=== PATIENT | female | born 1955 | race Caucasian/White ===

== ENCOUNTER 2025-01-22 09:10 | Day surgery (SDC) | payer MEDICARE, BC ==
[~2025-01-22] VITALS: Ht 167.6 cm; Wt 80.5 kg
[~2025-01-22 09:10] MED LIST: ALBUTEROL; ASPI-128 PO; LOSA25TA41 PO; ROSU10TA72 PO; SENN-360 PO; TIOT4MIS3 INH; VENL37.589 PO
[2025-01-22 09:47] VITALS: BP 143/81; PULSE 78; RESP 14
[2025-01-22] MEDS ORDERED: simethicone 40mg/0.6ml oral drops 30ml ONE (10:24)
[2025-01-22] MEDS ORDERED: midazolam 1 mg/ML 2ml injection ONE (10:34)
[2025-01-22] MEDS ORDERED: fentaNYL/PF 50MCG/1 ML 2ML syringe ONE (10:34)
[2025-01-22] MEDS ORDERED: propofol inj 20 ML IV ONE (10:53)
[2025-01-22 11:15] VITALS: BP 113/68; PULSE 66; RESP 17; O2SAT 98
[2025-01-22 11:20] VITALS: BP 112/69; PULSE 67; RESP 17; O2SAT 100
[2025-01-22 11:30] VITALS: BP 134/77; PULSE 63; RESP 19; O2SAT 100
[2025-01-22 11:40] VITALS: BP 134/77; PULSE 63; RESP 20; O2SAT 100
[2025-01-22 11:50] VITALS: BP 142/82; PULSE 18; RESP 65; O2SAT 100
--- NOTE | 2025-01-26 12:40 | PATHOLOGY REPORT ---
[facility] [address] [place] [address] SURGICAL PATHOLOGY REPORT CaseNumber: [id number] Surgeon:Lilibeth Hernandez M.D. CLINICAL INFORMATION CLINICAL INFORMATION: Periumbilical abdominal pain, hematochezia, dyspepsia. DIAGNOSIS DIAGNOSIS: COLON, SIGMOID; BIOPSY - HYPERPLASTIC POLYP. MICROSCOPIC DESCRIPTION MICROSCOPIC DESCRIPTION: Performed. GROSS DESCRIPTION GROSS DESCRIPTION: Received in a container of formalin labeled with the patient's name, number, and " sigmoid polyp" is a 0.5 x 0.2 x 0.2 cm irregularly shaped piece of mckay tissue. The specimen is entire ly submitted as A1. The time at which the specimen was removed was 1105. The time at which the specim en was placed in formalin was 1106. Electronically signed by: Macario Delgado, 01/26/2025 12:04:00 PM
== END 2025-01-22 12:00 | disposition home or self-care (01) ==
LOC: GI LAB 09:10
PROVIDERS: ATTEND Internal Medicine Gastroenterology
DX: K92.1 Melena (principal); K63.5 Polyp of colon; K64.8 Other hemorrhoids; I10 Essential (primary) hypertension; K57.30 Diverticulosis of large intestine without perforation or abscess without bleeding; J44.9 Chronic obstructive pulmonary disease, unspecified; Z87.891 Personal history of nicotine dependence; Z98.890 Other specified postprocedural states; Z79.899 Other long term (current) drug therapy
CPT/HCPCS: 45385; C1889; J2250; J2704; J3010; J7040; Z7512; 88305